=== PATIENT | female | born 1985 | race Hispanic/Latino ===

== ENCOUNTER 2016-11-10 21:40 | Emergency (ER) | payer SELFPAY ==
[~2016-11-10] VITALS: Ht 157.5 cm; Wt 61.4 kg
[~2016-11-10 21:40] MED LIST: PREN-107 PO
[2016-11-10 21:53] VITALS: BP 107/71; PULSE 53; RESP 12; O2SAT 100
[2016-11-10] MEDS ORDERED: 0.9% Sodium Chloride Inhalation Solution ONE (22:36)
[2016-11-10] MEDS ORDERED: Fluorescein 0.6 mg Ophthalmic Strip ONE (22:36)
[2016-11-10] MEDS ORDERED: Tetracaine 0.5% 4 mL Ophthalmic Solution ONE (22:38)
--- NOTE | 2016-11-10 22:44 | ED.REPORT ---
HPI-Eye Problem Date of Service Nov 10, 2016 ED Provider: Michael Smith MD Pt is a 31 y/o female presenting to the ED c/o foreign body sensation in left eye onset 2 days ago. The patient was working with bark at the time of onset. She denies vision changes or vision loss. She does not wear contact lenses. Nursing Notes Stated Complaint: SOMETHING IN EYE Chief Complaint: Eye Nursing Notes Reviewed: Yes Allergies: Coded Allergies: No Known Allergies (Unverified Allergy, 02/25/15) Scheduled Erythromycin Ophth Oint (Erythromycin Ophth Oint) 3.5 Gm Oint...g. 1 APPL OP QID Miscellaneous Medications VIT37/IRON/FOLIC ACID-Expunged Drug, (PRENATA-Expunged Drug, Do Not Renew!) 1 Each Tab.chew 1 EACH PO General Time Seen by MD: 22:43 Chief Complaint Left eye affected, Foreign body sensation Hx Obtained From: Patient Arrived By: Walk-in Sudden in Onset?: No Onset Occurred: 2 days ago Symptom Duration: Since onset Progression Since Onset: Unchanged Location: : Eye left Quality: Painful Radiation: Does not radiate Severity: Current: Mild Severity: Maximum: Mild Similar Sx Previous: No Past Medical History Past Medical History None reported Past Surgical History None reported Smoking History Never Smoker Social History Alcohol Use: Denies alcohol use Drug Use: Denies drug use Ambulatory Status Independent Review of Systems Constitutional: Denies: Chills, Fever Eyes: Reports: Eye pain left, Denies: Blurred left, Visual loss left Complete sys rev & neg: except as marked. Respiratory: Denies: Non-productive cough, Shortness of breath Cardiovascular: Denies: Chest pain, Dyspnea on exertion GI: Denies: Abdominal pain, Nausea, Vomiting Physical Exam Initial Vital Signs Vital Signs (First) Date Time Temp Pulse Resp B/P Pulse Ox O2 Delivery O2 Flow Rate FiO2 11/10/16 21:53 36.2 53 12 107/71 100 Room Air Initial VS: Reviewed ENT: Mucous membranes moist, Conjunctiva normal, No scleral icterus Neck: Supple, Full range of motion Respiratory: No respiratory distress Cardiovascular: Intact distal pulses Abdomen / GI: Soft, No distention Extremities: Vascular intact, Neuro intact, No swelling, No tenderness Skin: Warm, Dry, No cyanosis Neurologic: Alert, Oriented, Nonfocal Psychiatric: Mood/affect normal, Behavior normal, Normal thought content Head / Eyes: Atraumatic, Normocephalic, PERRL, EOMI No corneal abrasion Conjunctival erythema and ecchymosis No foreign bodies visible Fluorescein stain negative Eye pain decreased after exam General/Constitutional: Awake, Alert, No acute distress, Well appearing, Cooperative, Not toxic appearing Re-Eval/Medical Decision Med Decision/Clinical Course Patient is a healthy 31-year-old female who presents with left foreign body sensation in eye after getting dirt in her eye 2 days ago. Normal visual acuity. No evidence of infection. Fluorescein examination reveals no corneal abrasion or ulceration though she does have quite a bit of chemosis and conjunctival injection. No foreign body revealed. Suspect irritation secondary to foreign body which is no longer present. Patient does not wear contact lenses and is generally healthy. Course of erythromycin ointment prescribed. Follow-up and return precautions reviewed in detail patient for further understanding and agreement with the plan. Re-Evaluation/Progress : Time of Eval: 23:11 Re-Evaluation/Progress Note: Pt rechecked. Informed pt of plan for treatment. Pt understands and agrees with plan for treatment. F/U instructions and RTER warnings given. All questions addressed. Counseled Regarding: Diagnosis, Need for follow-up, When/why to return to ED Discharge & Departure Primary Impression: Irritation of left eye Additional Impressions: Foreign body of left eye Encounter type: initial encounter Qualified Code: T15.92XA - Foreign body on external eye, part unspecified, left eye, initial encounter Conjunctival injection Laterality: left Qualified Code: H11.432 - Conjunctival hyperemia, left eye Chemosis of conjunctiva Laterality: left Qualified Code: H11.422 - Conjunctival edema, left eye Disposition: Home Discharge Condition All VS Reviewed: Yes Condition: Stable Additional Instructions: Thank you for seeking care at the emergency room. It is difficult for us to make definitive diagnoses in the ED but we believe that you are experiencing left eye irritation. Our primary goal today in the ED was to evaluate you for any life-threatening conditions. Your evaluation was reassuring. You will be discharged with a prescription for antibiotics, take them as directed. You should follow-up with your primary doctor in the next week. You should return to the ED immediately if you develop increasing redness, pain , swelling of the eye, high fever, or any other concerning signs or symptoms. Thank you for letting us partake in your care today. Referrals: [facility] Scribe Attestation Portions of this note were transcribed by Jimmie Alba. I, Dr. Smith personally performed the history, physical exam and medical decision-making; I reviewed and confirmed the accuracy of the information in the transcribed note. Signed by Sarbjit Barrientos, 11/10/16 - [id number] Michael Smith MD Nov 10, 2016 22:44 JIMMIE ALBA Nov 10, 2016 22:47
[2016-11-10] MEDS ORDERED: Fluorescein 0.6 mg Ophthalmic Strip BOTH_EYES ONE (22:45)
[2016-11-10] MEDS ORDERED: Tetracaine 0.5% 4 mL Ophthalmic Solution BOTH_EYES ONE (22:45)
[2016-11-10] MEDS ORDERED: ERYT1OIN7 OP (23:14)
[2016-11-11 00:17] VITALS: BP 128/74; PULSE 64; RESP 12; O2SAT 98
== END 2016-11-11 00:19 | disposition home or self-care (01) ==
LOC: SED 21:40
DX: H57.8 Other specified disorders of eye and adnexa (principal); T15.92XA Foreign body on external eye, part unspecified, left eye, initial encounter; W60.XXXA Contact with nonvenomous plant thorns and spines and sharp leaves, initial encounter; Y92.9 Unspecified place or not applicable; Y93.89 Activity, other specified; Y99.8 Other external cause status; H11.432 Conjunctival hyperemia, left eye; H11.422 Conjunctival edema, left eye